=== PATIENT | female | born 1980 | race Two or more races ===

== ENCOUNTER 2021-01-01 01:18 | Emergency (ER) | payer BC, OTHER ==
[~2021-01-01] VITALS: Ht 167.6 cm; Wt 95.3 kg
[2021-01-01] MEDS ORDERED: LOSARTAN POTASSIUM 25 MG TAB PO ONE (01:45)
[2021-01-01 02:31] LABS: Calcium 8.7 mg/dL (8.5-10.1); Chloride 106 mmol/L (98-107); Potassium 3.3 mmol/L (3.5-5.1); Sodium 139 mmol/L (136-145)
[2021-01-01 02:35] LABS: Alanine Aminotransferase 33 U/L (13-56); Albumin 3.8 g/dL (3.4-5.0); Anion Gap 8 (5-15); Aspartate Aminotransferase 18 U/L (15-37); Blood Urea Nitrogen 10 mg/dL (7-18); Carbon Dioxide 25 mmol/L (21-32); GFR African American 80 mL/min; GFR Non-African American 66 mL/min; Glucose 116 mg/dL (74-106)
[2021-01-01 02:40] LABS: Alkaline Phosphatase 85 U/L (45-117); Bilirubin, Total 0.5 mg/dL (0.2-1.0); Total Protein 7.5 g/dL (6.4-8.2)
[2021-01-01] MEDS ORDERED: SODIUM CHLORIDE 0.9% 1,000 ML IV ONE (04:00)
[2021-01-01] MEDS ORDERED: FAMOTIDINE (10MG/ML) 2ML VL IV ONE (04:00)
[2021-01-01] MEDS ORDERED: ONDANSETRON HCL 4 MG/2 ML VIAL IV ONE (04:00)
[2021-01-01 07:23] LABS: Basophils # (auto) 0 10 ^3/uL (0-0.2); Basophils % (auto) 0.3 % (0.0-2.0); Eosinophils # (auto) 0.2 10 ^3/uL (0-0.8); Eosinophils % (auto) 3.2 % (0.0-7.0); Hematocrit 41.9 % (36.0-46.0); Hemoglobin 13.6 g/dL (12.2-16.2); Lymphocytes % (auto) 25.9 % (10.0-50.0); Mean Corpuscular Hemoglobin 24.4 pg (28.0-32.0); Mean Corpuscular Hgb Conc. 32.5 g/dL (32.0-36.0); Mean Corpuscular Volume 75.1 fL (80.0-100.0); Monocytes # (auto) 0.4 10 ^3/uL (0-1.3); Monocytes % (auto) 5.1 % (0.0-12.0); Neutrophils % (auto) 65.5 % (37.0-80.0); Platelet Count (auto) 234 10^3/uL (140-450); Red Blood Cells 5.59 10^6/uL (4.0-5.20); Red Cell Distribution Width 17.3 % (11.8-14.3); White Blood Cell 7.7 10^3/uL (4.4-10.8)
[2021-01-01 07:43] LABS: Albumin 3.2 g/dL (3.4-5.0); Calcium 7.9 mg/dL (8.5-10.1); Magnesium 2.2 mg/dL (1.6-2.6); Potassium 3.4 mmol/L (3.5-5.1)
[2021-01-01 07:48] LABS: BUN/Creatinine Ratio 12.5; Bilirubin, Total 0.5 mg/dL (0.2-1.0); Total Protein 6.4 g/dL (6.4-8.2)
[2021-01-01 07:55] LABS: Urine Bacteria FEW /hpf (None Seen); Urine Blood Negative /uL (Negative); Urine Hyaline Cast FEW /lpf (0 - 2); Urine Mucus MODERATE (None Seen); Urine Specific Gravity 1.025 (1.001-1.035); Urine WBC 16 /hpf (0 - 5)
[2021-01-01] MEDS ORDERED: IOHEXOL 300 MG/ML 100ML BOTTLE IJ ONE (09:25)
[2021-01-01] MEDS ORDERED: ACETAMINOPHEN 325 MG TAB PO ONE (11:00)
[2021-01-01] MEDS ORDERED: LABETALOL HCL 5 MG/ML 4ML SYRINGE IV ONE (11:00)
[2021-01-01] MEDS ORDERED: POTASSIUM EFFERVESENT TAB 25 MEQ PO ONE (11:30)
[2021-01-01] MEDS ORDERED: cloNIDine HCL 0.1 MG TAB PO ONE (12:15)
[2021-01-01] MEDS ORDERED: cloNIDine HCL 0.1 MG TAB ONE (12:26)
[2021-01-01 13:22] VITALS: BP 150/95
== END 2021-01-01 13:36 | disposition home or self-care (01) ==
LOC: ER 01:21
DX: R10.13 Epigastric pain (principal); R11.2 Nausea with vomiting, unspecified; R19.7 Diarrhea, unspecified; I10 Essential (primary) hypertension
CPT/HCPCS: 36415; 74177; 80053; 81001; 83605; 83735; 84484; 85025; 93005; 96361; 96374; 96375; 99285; J2405; J3490; J7030; Q9967

== ENCOUNTER 2021-01-09 14:36 | Emergency (ER) | payer BC ==
[~2021-01-09] VITALS: Ht 167.6 cm; Wt 99.8 kg
[2021-01-09] MEDS ORDERED: cloNIDine HCL 0.1 MG TAB PO ONE (15:15)
[2021-01-09 15:44] LABS: Basophils # (auto) 0.1 10 ^3/uL (0-0.2); Basophils % (auto) 1.4 % (0.0-2.0); Eosinophils # (auto) 0.6 10 ^3/uL (0-0.8); Eosinophils % (auto) 7.4 % (0.0-7.0); Hematocrit 42.4 % (36.0-46.0); Hemoglobin 13.9 g/dL (12.2-16.2); Lymphocytes # (auto) 2.1 10 ^3/uL (0.4-5.4); Lymphocytes % (auto) 25.5 % (10.0-50.0); Mean Corpuscular Hgb Conc. 32.9 g/dL (32.0-36.0); Mean Corpuscular Volume 75.9 fL (80.0-100.0); Monocytes # (auto) 0.4 10 ^3/uL (0-1.3); Neutrophils # (auto) 4.9 10 ^3/uL (1.6-8.6); Neutrophils % (auto) 60.7 % (37.0-80.0); Nucleated Red Blood Cells % 0.1 %; Platelet Count (auto) 230 10^3/uL (140-450); Red Blood Cells 5.58 10^6/uL (4.0-5.20); Red Cell Distribution Width 17.6 % (11.8-14.3); White Blood Cell 8.1 10^3/uL (4.4-10.8)
[2021-01-09 15:59] LABS: Chloride 108 mmol/L (98-107); Potassium 3.9 mmol/L (3.5-5.1); Sodium 141 mmol/L (136-145)
[2021-01-09 16:08] LABS: Alanine Aminotransferase 26 U/L (13-56); Albumin 3.5 g/dL (3.4-5.0); Alkaline Phosphatase 86 U/L (45-117); Anion Gap 5 (5-15); Aspartate Aminotransferase 16 U/L (15-37); BUN/Creatinine Ratio 10.2; Bilirubin, Total 0.2 mg/dL (0.2-1.0); Blood Urea Nitrogen 9 mg/dL (7-18); Calcium 8.5 mg/dL (8.5-10.1); Carbon Dioxide 28 mmol/L (21-32); GFR African American 92 mL/min; GFR Non-African American 76 mL/min; Glucose 90 mg/dL (74-106)
[2021-01-09 16:37] VITALS: BP 135/88
[2021-01-09 16:58] LABS: Urine Amorphous Crystal FEW /hpf (None Seen); Urine Bacteria NONE SEEN /hpf (None Seen); Urine Blood Negative /uL (Negative); Urine Mucus FEW (None Seen); Urine Specific Gravity 1.021 (1.001-1.035); Urine WBC 6 /hpf (0 - 5)
== END 2021-01-09 17:48 | disposition home or self-care (01) ==
LOC: ER 14:36
DX: I16.0 Hypertensive urgency (principal); I10 Essential (primary) hypertension
CPT/HCPCS: 36415; 80053; 81001; 84484; 85025; 93005

== ENCOUNTER 2021-08-23 07:19 | Emergency (ER) | payer BC ==
[~2021-08-23] VITALS: Ht 167.6 cm; Wt 95.3 kg
[2021-08-23] MEDS ORDERED: cloNIDine HCL 0.1 MG TAB PO ONE (07:30)
[2021-08-23] MEDS ORDERED: ONDANSETRON ODT 4 MG TAB PO ONE (07:30)
[2021-08-23] MEDS ORDERED: SUMAtriptan SUCCINATE 6 MG/0.5 ML VL SC ONE (08:15)
[2021-08-23 08:28] LABS: Urine Bacteria MANY /hpf (None Seen); Urine Blood Negative /uL (Negative); Urine Hyaline Cast FEW /lpf (0 - 2); Urine Mucus FEW (None Seen); Urine Specific Gravity 1.023 (1.001-1.035); Urine WBC 33 /hpf (0 - 5)
[2021-08-23 09:17] VITALS: BP 184/105
== END 2021-08-23 09:27 | disposition home or self-care (01) ==
LOC: ER 07:19
DX: G43.909 Migraine, unspecified, not intractable, without status migrainosus (principal); N39.0 Urinary tract infection, site not specified; I10 Essential (primary) hypertension
CPT/HCPCS: 81001; 81025; 96372; 99283; J3030; Q0162

== ENCOUNTER 2021-11-27 10:48 | Inpatient (IN) | payer BC ==
[~2021-11-27] VITALS: Ht 167.6 cm; Wt 99.3 kg
[2021-11-27] MEDS ORDERED: KETOROLAC TROMETH 60MG/2ML VIAL IM ONE (13:30)
[2021-11-27] MEDS ORDERED: IBU600T PO (13:38)
[2021-11-27] MEDS ORDERED: ONDANSETRON HCL 4 MG/2 ML VIAL IV ONE (15:45)
[2021-11-27] MEDS ORDERED: hydrALAZINE HCL 20 MG/ML VL IV ONE (15:45)
[2021-11-27] MEDS ORDERED: HYDROmorphone HCL 2 MG/ML VL IV ONE (15:45)
[2021-11-27] MEDS ORDERED: cefTRIAXone 1GM/50ML D5W 50 ML IV ONE (15:45)
[2021-11-27 16:34] LABS: Basophils # (auto) 0 10 ^3/uL (0-0.2); Eosinophils # (auto) 0.3 10 ^3/uL (0-0.8); Hemoglobin 14.3 g/dL (12.2-16.2); Mean Corpuscular Volume 74.3 fL (80.0-100.0); Neutrophils # (auto) 5.2 10 ^3/uL (1.6-8.6); White Blood Cell 7.8 10^3/uL (4.4-10.8)
[2021-11-27 16:36] LABS: Basophils % (auto) 0.5 % (0.0-2.0); Eosinophils % (auto) 3.9 % (0.0-7.0); Hematocrit 43.6 % (36.0-46.0); Lymphocytes # (auto) 1.9 10 ^3/uL (0.4-5.4); Lymphocytes % (auto) 24.6 % (10.0-50.0); Mean Corpuscular Hemoglobin 24.3 pg (28.0-32.0); Mean Corpuscular Hgb Conc. 32.7 g/dL (32.0-36.0); Monocytes # (auto) 0.4 10 ^3/uL (0-1.3); Monocytes % (auto) 4.6 % (0.0-12.0); Neutrophils % (auto) 66.4 % (37.0-80.0); Nucleated Red Blood Cells % 0.1 %; Red Blood Cells 5.87 10^6/uL (4.0-5.20); Red Cell Distribution Width 17.1 % (11.8-14.3)
[2021-11-27 17:11] LABS: Albumin 3.6 g/dL (3.4-5.0); Calcium 8.7 mg/dL (8.5-10.1); Potassium 3.4 mmol/L (3.5-5.1)
[2021-11-27 17:14] LABS: BUN/Creatinine Ratio 12.4; Bilirubin, Total 0.4 mg/dL (0.2-1.0); Total Protein 7.4 g/dL (6.4-8.2)
[2021-11-27] MEDS ORDERED: LABETALOL HCL 5 MG/ML 4ML SYRINGE IV ONE (17:45)
[2021-11-27] MEDS ORDERED: cloNIDine HCL 0.1 MG TAB PO PRN (20:45)
[2021-11-27] MEDS ORDERED: NITROGLYCERIN 0.4 MG SL TAB SL PRN (20:45)
[2021-11-27] MEDS ORDERED: ONDANSETRON HCL 4 MG/2 ML VIAL IV PRN (20:45)
[2021-11-27] MEDS ORDERED: MORPHINE SULFATE INJECTION 2 MG/ML SYRG IV PRN (20:45)
[2021-11-27] MEDS ORDERED: ACETAMINOPHEN 325 MG TAB PO PRN (20:45)
[2021-11-27 21:38] LABS: Urine Amorphous Crystal FEW /hpf (None Seen); Urine Bacteria FEW /hpf (None Seen); Urine Blood Negative /uL (Negative); Urine Mucus FEW (None Seen); Urine Specific Gravity 1.027 (1.001-1.035); Urine WBC 4 /hpf (0 - 5)
[2021-11-27] MEDS ORDERED: TEMAZEPAM 15 MG CAP PO PRN (22:00)
[2021-11-27] MEDS ORDERED: POTASSIUM CHL 20 Meq TABLET PO ONE (22:45)
[2021-11-27] MEDS ORDERED: SUMAtriptan SUCCINATE 25 MG TAB PO PRN (23:00)
[2021-11-28] MEDS ORDERED: SUMA50TA16 PO (00:16)
[2021-11-28] MEDS ORDERED: LOSA25TA38 PO (00:16)
[2021-11-28 05:00] VITALS: BP 122/85
[2021-11-28 06:06] LABS: Basophils # (auto) 0 10 ^3/uL (0-0.2); Basophils % (auto) 0.5 % (0.0-2.0); Eosinophils # (auto) 0.3 10 ^3/uL (0-0.8); Eosinophils % (auto) 3.6 % (0.0-7.0); Hematocrit 38.9 % (36.0-46.0); Lymphocytes # (auto) 2.6 10 ^3/uL (0.4-5.4); Lymphocytes % (auto) 31.6 % (10.0-50.0); Mean Corpuscular Hemoglobin 24.8 pg (28.0-32.0); Mean Corpuscular Hgb Conc. 33.3 g/dL (32.0-36.0); Mean Corpuscular Volume 74.2 fL (80.0-100.0); Monocytes # (auto) 0.5 10 ^3/uL (0-1.3); Monocytes % (auto) 6.4 % (0.0-12.0); Neutrophils # (auto) 4.7 10 ^3/uL (1.6-8.6); Neutrophils % (auto) 57.9 % (37.0-80.0); Nucleated Red Blood Cells % 0.1 %; Red Blood Cells 5.24 10^6/uL (4.0-5.20); Red Cell Distribution Width 17.1 % (11.8-14.3); White Blood Cell 8.1 10^3/uL (4.4-10.8)
[2021-11-28 06:16] LABS: BUN/Creatinine Ratio 15.4; Calcium 8.3 mg/dL (8.5-10.1); Potassium 3.3 mmol/L (3.5-5.1)
[2021-11-28 09:00] VITALS: BP 126/90
[2021-11-28] MEDS ORDERED: LOSARTAN POTASSIUM 25 MG TAB PO SCH (10:00)
[2021-11-28] MEDS ORDERED: LISINOPRIL 10 MG TAB PO SCH (10:00)
[2021-11-28] MEDS ORDERED: PANTOPRAZOLE 40 MG TAB PO SCH (10:00)
[2021-11-28] MEDS ORDERED: METO25TA36 PO (12:09)
[2021-11-28] MEDS ORDERED: LOSA-69 PO (12:09)
[2021-11-28] MEDS ORDERED: RIME75TA PO (12:09)
[2021-11-28] MEDS ORDERED: POTASSIUM CHL 20 Meq TABLET PO ONE (12:15)
[2021-11-28 13:00] VITALS: BP 125/88
[2021-11-28 15:19] VITALS: BP 126/90
== END 2021-11-28 17:16 | disposition home or self-care (01) | DRG 103 ==
LOC: ER 10:48 → TELE 20:44 → TELE-WESTW 22:33
PROVIDERS: ADMIT Nurse Practitioner; ATTEND Internal Medicine
DX: G43.909 Migraine, unspecified, not intractable, without status migrainosus (principal); I16.0 Hypertensive urgency; E87.6 Hypokalemia; E66.01 Morbid (severe) obesity due to excess calories; I10 Essential (primary) hypertension; Z20.822 Contact with and (suspected) exposure to COVID-19; Z68.35 Body mass index [BMI] 35.0-35.9, adult
CPT/HCPCS: 36415; 70450; 80048; 80053; 81001; 84443; 84484; 85025; 96365; 96372; 96375; 96376; 99291; G0378; J0696; J1885; J2405; J3490

== ENCOUNTER 2022-04-30 08:50 | Emergency (ER) | payer BC ==
[~2022-04-30] VITALS: Ht 167.6 cm; Wt 97.8 kg
[~2022-04-30 08:50] MED LIST: LOSA-69 PO; LOSA25TA38 PO; METO25TA36 PO; RIME75TA PO; SUMA50TA16 PO
[2022-04-30 09:07] VITALS: BP 167/114
[2022-04-30 09:36] LABS: Basophils # (auto) 0.1 10 ^3/uL (0-0.2); Monocytes # (auto) 0.4 10 ^3/uL (0-1.3); Neutrophils % (auto) 59.4 % (37.0-80.0); Nucleated Red Blood Cells % 0.1 %
[2022-04-30 09:38] LABS: Basophils % (auto) 1.2 % (0.0-2.0); Eosinophils # (auto) 0.5 10 ^3/uL (0-0.8); Eosinophils % (auto) 5.7 % (0.0-7.0); Hematocrit 46.2 % (36.0-46.0); Hemoglobin 14.8 g/dL (12.2-16.2); Lymphocytes # (auto) 2.5 10 ^3/uL (0.4-5.4); Lymphocytes % (auto) 29.5 % (10.0-50.0); Mean Corpuscular Hgb Conc. 32.1 g/dL (32.0-36.0); Mean Corpuscular Volume 74.8 fL (80.0-100.0); Monocytes % (auto) 4.2 % (0.0-12.0); Red Blood Cells 6.18 10^6/uL (4.0-5.20); White Blood Cell 8.4 10^3/uL (4.4-10.8)
[2022-04-30 09:57] LABS: Albumin 3.8 g/dL (3.4-5.0); Calcium 8.9 mg/dL (8.5-10.1); Potassium 3.1 mmol/L (3.5-5.1)
[2022-04-30 10:00] LABS: BUN/Creatinine Ratio 11.8; Bilirubin, Total 0.4 mg/dL (0.2-1.0); Total Protein 7.6 g/dL (6.4-8.2)
[2022-04-30 11:11] LABS: Urine Bacteria FEW /hpf (None Seen); Urine Blood Negative /uL (Negative); Urine Mucus FEW (None Seen); Urine Specific Gravity 1.024 (1.001-1.035); Urine WBC 8 /hpf (0 - 5)
[2022-04-30] MEDS ORDERED: IBU600T PO (11:57)
[2022-04-30] MEDS ORDERED: NITR-87 PO (11:57)
== END 2022-04-30 20:15 | disposition home or self-care (01) ==
LOC: ER 08:50
DX: G43.909 Migraine, unspecified, not intractable, without status migrainosus (principal); N39.0 Urinary tract infection, site not specified; I10 Essential (primary) hypertension
CPT/HCPCS: 36415; 70450; 80053; 81001; 85025

== ENCOUNTER 2024-10-18 10:46 | Inpatient (IN) | payer BC, OTHER ==
[~2024-10-18] VITALS: Ht 167.6 cm; Wt 91.6 kg
[~2024-10-18 10:46] MED LIST changes: +IBU600T PO; +LOSA-533 PO; +LOSA-534 PO; -LOSA-69 PO; -LOSA25TA38 PO; +NITR-87 PO
--- NOTE | 2024-10-18 11:16 | ECG ---
[facility] Test Date: 2024-10-18 Test Time: 11:14:57 Pat Name: LUCHO HAMILTON Department: ER Room: [address] [place] [address] Gender: F Budget Analyst: KAIDEN : 1980 Requested By: NESTOR KIM Order Number: [id number] Reading MD: Kavon Fisher Measurements Intervals [place] Rate: 92 P: 56 KS: 157 QRS: 50 QRSD: 96 T: 29 QT: 363 QTc: 450 Interpretive Statements Sinus rhythm Electronically Signed On 10-23-2024 17:12:28 PST by Kavon Fisher Please click the below link to view image of tracing.
[2024-10-18] MEDS: NITROGLYCERIN 0.4 MG SL TAB SL ONE (11:26)
--- NOTE | 2024-10-18 11:26 | ED.PDOC ---
HPI Comments HPI: Poor Historian. 44 y.o female presents to the ED for a chief complaint of a generalized headache associated with nausea and vomiting that started 2 days ago. Patient presents to triage with blood pressure reading 203/134 and a repeat of 169/130. Patient does have history of HTN and is compliant with medication. Patient denies any recent head trauma, fall. Denies any other acute symptoms. Denies abdominal pain. Denies any other neurological complaints. Vitals BP: 169/130 HR: 95 Temp: 98.1 F RR: 16 SPO2: 97% RA Past medical history: HTN and migraines Past surgical history: and breast implants Allergies: Denies REVIEW OF SYSTEMS: CONSTITUTIONAL: Denies acute: fever, diaphoresis, chills, generalized weakness. HEAD: Denies acute: photophobia Eyes: Denies acute: Double vision, vision loss, eye pain, eye discharge. EARS: Denies acute: tinnitus, hearing loss, ear discharge, ear pain, THROAT: Denies acute: sore throat, swelling, difficulty swallowing , pain with swallowing, change in voice. NECK: Denies acute: neck pain, neck swelling, stiff neck. HEART: Denies acute : chest pain, palpitations, LUNGS: Denies acute: SOB, wheezing, cough, hemoptysis ABDOMEN: Denies acute: abdominal pain, diarrhea, melena , hematemesis, hematochezia SKIN: Denies acute: rash, redness, lesions, itchiness. EXTREMITIES: Denies acute: calf pain, numbness, tingling, weakness, denies pain in extremity. Denies acute: Low back pain. Neuro: Denies acute: focal neurological deficit, motor or sensory focal neurological deficit, tremors, seizure like activity, confusion, dizziness, change in mental status, loss of bowel or bladder function, cauda equina like symptoms. : Denies acute: dysuria, hematuria, flank pain, increase in urinary frequency. PSYCH: Denies acute: hallucination, suicidal ideation, homicidal ideation. FEMALE: Denies acute: abnormal vaginal bleeding, foul odor, unusual discharge. PHYSICAL EXAM: General: Clpt-[id number] acute distress, awake and alert. Head: normocephalic, atraumatic. Neck: supple, trachea is midline, no swelling. Throat: Normal phonation. Eyes:, no erythema, no purulent discharge, no proptosis, no icterus. Heart: regular rate, regular rhythm, no significant murmur appreciated. Lungs: no apparent respiratory distress, Able to speak in full sentences. No wheezing, no rhonchi, no crackles. No stridors Clear to auscultation bilaterally. Abdomen: non tender to palpation, non distended, soft, no guarding, no rebound, + bowel sounds. Neuro: Awake, Alert, oriented to name, self, situation, follows commands GCS=15. Speech is normal. Skin: no petechia, no purpura, no cyanosis, non-pale, not jaundice. Lower extremities: --no - Pitting edema no deformity, no focal swelling, no calf TTP. Makes eye contact. moves all four extremities. Face: no apparent facial droop. Ambulating in the ED independently. PERRLA, EOM-I CN 2-12 are grossly intact, No nystagmus. ED COURSE: Chief Complaint: High Blood Pressure Time Seen by MD: 11:08 Primary Care Provider: roberto Reviewed Notes: Nurses Notes, Allergies Allergies: Coded Allergies: NO KNOWN ALLERGIES (Unverified , 01/09/21) Home Meds Active Scripts Ibuprofen Micronized (MOTRIN TABLET) 600 Mg Tb, 600 MG PO TID PRN for 7 Days, #21 TAB *Black box warning-NSAIDS can increase risk of CT & hypertension, GI irritation, ulceration, bleed, perferation. Do not use post cardiac surgery. Use short duration/lowest effective dose. Prov:DRU MAKI MD 04/30/22 Nitrofurantoin Monohydrate Mac (Macrobid) 100 Mg Cap, 100 MG PO BID for 7 Days, #21 CAP Prov:DRU MAKI MD 04/30/22 Metoprolol Succinate (Toprol Xl) 25 Mg Tab, 1 TAB PO DAILY, #30 TAB 0 Refills Prov:JOSE STEVENS MD 11/28/21 Rimegepant Sulfate (Nurtec) 75 Mg Tab, 75 MG PO PRN, #3 TAB 0 Refills 75 mg PO x 1 as needed for prophylaxis migraine headache (two days prior menstrual period) Prov:JOSE STEVENS MD 11/28/21 Losartan Potassium (Losartan Potassium) 50 Mg Tab, 1 TAB PO DAILY, #30 TAB 0 Refills Prov:JOSE STEVENS MD 11/28/21 Reported Medications Sumatriptan Succinate (Sumatriptan Succinate) 50 Mg Tab, 50 MG PO DAILYP PRN for FOR HEADACHE, MG 11/28/21 Losartan Potassium (Losartan Potassium) 25 Mg Tab, PO DAILY for 30 Days, MG 11/28/21 Information Source: Patient Mode of Arrival: Ambulatory Past Medical History PAST MEDICAL HISTORY: HTN Past Medical History (Other): migraines 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 Was a procedure done?: No CP Differential Dx Differential Diagnosis: N/A Differential Diagnosis: CHF, HTN Essential, HTN Accelerated, HTN Encephalopathy, Medical NonCompliance, Induced, Other (DDX include renal disease, thyroid disease, electrolyte abnormality, increased salt intake, medications non-compliance, undiagnosed HTN, Hypertensive crisis, hypertensive urgency., drug toxicity.) X-Ray, Labs, Meds, VS Vital Signs Date Time Temp Pulse Resp B/P (MAP) Pulse Ox O2 Delivery O2 Flow Rate FiO2 10/18/24 18:53 98.0 96 16 204/132 (156) 98 98.0 10/18/24 16:04 85 16 189/129 (149) 98 10/18/24 14:31 82 176/126 10/18/24 14:17 82 176/126 (143) 10/18/24 12:26 168/115 10/18/24 11:29 Room Air* 0 21 10/18/24 11:28 98.0 96 17 181/143 (156) 99 98.0 10/18/24 11:26 181/143 10/18/24 11:15 98.1 95 16 169/130 (143) 97 10/18/24 11:14 92 Lab Test 10/18/24 12:13 10/18/24 11:18 10/18/24 11:11 Range/Units Troponin I High Sensitivity < 3 L < 3 L </=34 ng/L Triglycerides Level 103 < 150 mg/dL Cholesterol Level 155 < 200 mg/dL LDL Cholesterol 103 H < 100 mg/dL HDL Cholesterol 48 40-59 mg/dL Thyroid Stimulating Hormone (TSH) Pending White Blood Count 7.8 4.4-10.8 10^3/uL Red Blood Count 6.41 H 4.0-5.20 10^6/uL Hemoglobin 13.4 12.2-16.2 g/dL Hematocrit 43.7 36.0-46.0 % Mean Corpuscular Volume 68.2 L 80.0-100.0 fL Mean Corpuscular Hemoglobin 20.9 L 28.0-32.0 pg Mean Corpuscular Hemoglobin Concent 30.7 L 32.0-36.0 g/dL Red Cell Distribution Width 19.1 H 11.8-14.3 % Platelet Count 292 140-450 10^3/uL Mean Platelet Volume 8.9 6.9-10.8 fL Neutrophils (%) (Auto) 59.6 37.0-80.0 % Lymphocytes (%) (Auto) 26.7 10.0-50.0 % Monocytes (%) (Auto) 5.2 0.0-12.0 % Eosinophils (%) (Auto) 7.5 H 0.0-7.0 % Basophils (%) (Auto) 1.0 0.0-2.0 % Neutrophils # (Auto) 4.6 1.6-8.6 10 ^3/uL Lymphocytes # (Auto) 2.1 0.4-5.4 10 ^3/uL Monocytes # (Auto) 0.4 0-1.3 10 ^3/uL Eosinophils # (Auto) 0.6 0-0.8 10 ^3/uL Basophils # (Auto) 0.1 0-0.2 10 ^3/uL Nucleated Red Blood Cells 0.0 % Sodium Level 141 136-145 mmol/L Potassium Level 4.0 3.5-5.1 mmol/L Chloride Level 107 98-107 mmol/L Carbon Dioxide Level 26 20-31 mmol/L Anion Gap 8 5-15 Blood Urea Nitrogen 9 9-23 mg/dL Creatinine 0.91 0.550-1.02 mg/dL Glomerular Filtration Rate Calc 81 >90 mL/min BUN/Creatinine Ratio 9.9 L 10.0-20.0 Serum Glucose 100 74-106 mg/dL Calcium Level 9.4 8.7-10.4 mg/dL Total Bilirubin 0.4 0.2-1.0 mg/dL Aspartate Amino Transferase (AST) < 8 L 13-40 U/L Alanine Aminotransferase (ALT) 18 7-40 U/L Alkaline Phosphatase 91 46-116 U/L Total Protein 7.1 5.7-8.2 g/dL Albumin 4.8 3.2-4.8 g/dL Urine Color Yellow Yellow Urine Clarity Clear Clear Urine pH 6.0 5.0-9.0 Urine Specific [place] 1.019 1.001-1.035 Urine Protein 1+ H Negative Urine Ketones Negative Negative Urine Blood Negative Negative /uL Urine Nitrite Negative Negative Urine Bilirubin Negative Negative Urine Urobilinogen Normal Negative mg/dL Urine Leukocyte Esterase Negative Negative /uL Urine RBC <1 0 - 4 /hpf Urine Microscopic WBC 4 0-5 /HPF Urine Squamous Epithelial Cells Few <5 /hpf Urine Bacteria Few H None Seen /hpf Urine Hyaline Casts Few 0 - 2 /lpf Urine Mucus Moderate None Seen Urine Glucose Trace Normal mg/dL Current Medications Medications (Trade) Dose Ordered Sig/Rosanna Route Start Time Stop Time Status Last Admin Nitroglycerin (Ntrostat Sublingual) 0.4 mg ONCE ONCE SL 10/18/24 11:15 10/18/24 11:16 DC 10/18/24 11:26 Labetalol HCl (Labetalol HCl) 5 mg ONCE ONCE IV 10/18/24 14:30 10/18/24 14:31 DC 10/18/24 14:31 Ondansetron HCl (Zofran) 8 mg ONCE ONCE IV 10/18/24 14:45 10/18/24 14:46 DC 10/18/24 14:54 Labetalol HCl (Labetalol HCl) 5 mg ONCE ONCE IV 10/18/24 18:30 10/18/24 19:02 DC 10/18/24 19:35 [place] [id number] Ph: [phone] DIAGNOSTIC IMAGING Diagnostic Imaging Report : [id number] Signed PATIENT: LUCHO HAMILTON ACCT: [id number] UNIT: [id number] : 1980 LOC: ER ROOM / BED: / AGE / SEX: 44 / F ADM STATUS: REG ER SERVICE 1111 ORDERING PHYSICIAN: NESTOR KIM DO PROCEDURE(s): HWOCT - HEAD WITHOUT CONTRAST REASON: HTN ORDER NUMBER(s): [id number], ACCESSION NUMBER(s): [id number] EXAM: CT HEAD WITHOUT CONTRAST HISTORY: HTN COMPARISON: HEAD WITHOUT CONTRAST on DOS: 04/30/22, HEAD WITHOUT CONTRAST on DOS: 11/27/21 TECHNIQUE: Axial images of the head were obtained and reformatted in coronal and sagittal planes. All CT scans at this medical facility are performed using dose modulation techniques as appropriate to a performed exam including the following: Automated exposure control was utilized; adjustment of the MA and/or KV according to patient size; and use of iterative reconstruction technique. CT Dose: CTDI volume is 57 mGy. Dose-length product is 1009 mGy*cm FINDINGS: There is no evidence of acute intracranial hemorrhage, mass, mass effect midline shift. There is no hydrocephalus or extra-axial fluid collection. Ivan-white matter differentiation is maintained. The visualized paranasal sinuses and mastoid air cells are clear. The calvarium is intact. IMPRESSION: 1. No acute intracranial process. HS:Y ATED BY: HENRY SALDANA MD DICTATED DATE/TIME: 10/18/24 1151 SIGNED BY: HENRY SALDANA MD SIGNED DATE/TIME: 10/18/24 1151 CC: [place] [id number] Ph: [phone] DIAGNOSTIC IMAGING Diagnostic Imaging Report : [id number] Signed PATIENT: LUCHO HAMILTON ACCT: [id number] UNIT: [id number] : 1980 LOC: ER ROOM / BED: / AGE / SEX: 44 / F ADM STATUS: REG ER SERVICE 1111 ORDERING PHYSICIAN: NESTOR KIM DO PROCEDURE(s): CXRP - CHEST PORTABLE REASON: HTN ORDER NUMBER(s): [id number], ACCESSION NUMBER(s): [id number] EXAM: XY CHEST PORTABLE Indication: HTN Technique: Single frontal view of the chest was obtained Comparison: None FINDINGS: Lines and Tubes: None Lungs: No focal consolidation. Pleura: No effusion. No pneumothorax. Cardiomediastinal contours: Unremarkable Bones: No acute osseous abnormality. IMPRESSION: No acute cardiopulmonary disease. ATED BY: CHIARA JANG MD DICTATED DATE/TIME: 10/18/24 1201 SIGNED BY: CHIARA JANG MD SIGNED DATE/TIME: 10/18/24 1201 CC: Time of 1ST Reevaluation: 11:23 Reevaluation 1ST: Unchanged Patient Education/Counseling: Diagnosis, Treatment Family Education/Counseling: No Family Present Comments Patient presented with the above HPI.---hypotension/neuro---workup was initiated. patient was found with the above mentioned diagnosis. the following medications were ordered: please refer to order lists of meds and tests obtained by myself Dr. Kim. Patient ED course and VS have been stabilized. Patient has been reassessed in the ED and remained in a stable condition. Pertinent incidental findings were discussed with the patient and/or family. Patient/family voices understanding and is agreeable with plan. Patient has been observed in the ED adequate length of time to insure improvement/stability. Escalation of care considered: Consideration of escalation to observation or admission Patient was ADMITTED to the medicine team for further evaluation and treatment of their presentation. All the reports of any imaging studies that were ordered by myself were reviewed by myself. Departure 1 Departure Time of Disposition: 19:00 Impression: Primary Impression: Hypertensive urgency Disposition: ADMITTED INPATIENT Admit to: [facility] Condition: Guarded Discharged With: Self Critical Care Note Critical Care Time?: Yes (45 min-critical care time only) I personally scribed for NESTOR KIM DO ([email or web address]) on 10/18/24 at 11:26. Electronically submitted by Deepthi Boykin ([email or web address]). I personally scribed for NESTOR KIM DO ([email or web address]) on 10/18/24 at 13:58. Electronically submitted by Deepthi Boykin ([email or web address]). NESTOR KIM DO Oct 18, 2024 11:26
[2024-10-18 11:39] LABS: Basophils # (auto) 0.1 10 ^3/uL (0-0.2); Monocytes # (auto) 0.4 10 ^3/uL (0-1.3); Monocytes % (auto) 5.2 % (0.0-12.0); Platelet Count (auto) 292 10^3/uL (140-450)
[2024-10-18 11:41] LABS: Eosinophils # (auto) 0.6 10 ^3/uL (0-0.8); Eosinophils % (auto) 7.5 % (0.0-7.0); Hematocrit 43.7 % (36.0-46.0); Hemoglobin 13.4 g/dL (12.2-16.2); Lymphocytes # (auto) 2.1 10 ^3/uL (0.4-5.4); Lymphocytes % (auto) 26.7 % (10.0-50.0); Mean Corpuscular Hemoglobin 20.9 pg (28.0-32.0); Mean Corpuscular Hgb Conc. 30.7 g/dL (32.0-36.0); Mean Corpuscular Volume 68.2 fL (80.0-100.0); Neutrophils # (auto) 4.6 10 ^3/uL (1.6-8.6); Neutrophils % (auto) 59.6 % (37.0-80.0); Red Blood Cells 6.41 10^6/uL (4.0-5.20); Red Cell Distribution Width 19.1 % (11.8-14.3); White Blood Cell 7.8 10^3/uL (4.4-10.8)
--- NOTE | 2024-10-18 11:53 | DVH ---
EXAM: CT HEAD WITHOUT CONTRAST HISTORY: HTN COMPARISON: HEAD WITHOUT CONTRAST on DOS: 04/30/22, HEAD WITHOUT CONTRAST on DOS: 11/27/21 TECHNIQUE: Axial images of the head were obtained and reformatted in coronal and sagittal planes. All CT scans at this medical facility are performed using dose modulation techniques as appropriate t o a performed exam including the following: Automated exposure control was utilized; adjustment of th e MA and/or KV according to patient size; and use of iterative reconstruction technique. CT Dose: CTDI volume is 57 mGy. Dose-length product is 1009 mGy*cm FINDINGS: There is no evidence of acute intracranial hemorrhage, mass, mass effect midline shift. There is no h ydrocephalus or extra-axial fluid collection. Ivan-white matter differentiation is maintained. The visualized paranasal sinuses and mastoid air cells are clear. The calvarium is intact. IMPRESSION: 1. No acute intracranial process. HS:Y
[2024-10-18 12:01] LABS: Alanine Aminotransferase 18 U/L (7-40); Albumin 4.8 g/dL (3.2-4.8); Alkaline Phosphatase 91 U/L (46-116); Anion Gap 8 (5-15); BUN/Creatinine Ratio 9.9 (10.0-20.0); Blood Urea Nitrogen 9 mg/dL (9-23); Calcium 9.4 mg/dL (8.7-10.4); Carbon Dioxide 26 mmol/L (20-31); Glucose 100 mg/dL (74-106); Sodium 141 mmol/L (136-145); Total Protein 7.1 g/dL (5.7-8.2)
--- NOTE | 2024-10-18 12:01 | DVH ---
EXAM: XY CHEST PORTABLE Indication: HTN Technique: Single frontal view of the chest was obtained Comparison: None FINDINGS: Lines and Tubes: None Lungs: No focal consolidation. Pleura: No effusion. No pneumothorax. Cardiomediastinal contours: Unremarkable Bones: No acute osseous abnormality. IMPRESSION: No acute cardiopulmonary disease.
[2024-10-18 12:02] LABS: Bilirubin, Total 0.4 mg/dL (0.2-1.0)
[2024-10-18 12:05] LABS: Aspartate Aminotransferase < 8 U/L (13-40); Chloride 107 mmol/L (98-107)
[2024-10-18 12:39] LABS: Urine Bacteria FEW /hpf (None Seen); Urine Blood Negative /uL (Negative); Urine Clarity Clear (Clear); Urine Color Yellow (Yellow); Urine Hyaline Cast FEW /lpf (0 - 2); Urine Mucus MODERATE (None Seen); Urine Protein, UAD 1+ (Negative); Urine Specific Gravity 1.019 (1.001-1.035); Urine Squamous Epithelial Cell FEW /hpf (<5); Urine Urobilinogen Normal (Negative); Urine WBC 4 /HPF (0-5)
[2024-10-18] MEDS: LABETALOL HCL 20 MG/4 ML VL IV ONE ×2 (14:31→19:35)
[2024-10-18] MEDS: ONDANSETRON HCL 4 MG/2 ML VIAL IV ONE (14:54)
[2024-10-18] MEDS ORDERED: TEMAZEPAM 15 MG CAP PO PRN (19:15)
[2024-10-18] MEDS: ACETAMINOPHEN 325 MG TAB PO PRN (19:34)
[2024-10-18] MEDS ORDERED: HYDROcodone-ACET 5/325MG TAB PO PRN (20:15)
--- NOTE | 2024-10-18 20:18 | DVHHP2 ---
History of Present Illness Reason for Visit: Headache History of Present Illness 44-year-old female presents for evaluation of headache. Patient reports a two day history of developing a headache. She states that normally her blood pressure will run in the 160s. She reports that today she developed a headache and she initially thought that it was due to her migraines that she normally gets. When she checked her blood pressure it was reading in the 200s. She subsequently developed blurred vision and left arm tingling sensation. She also reports some episodes of nausea with vomiting. No chest pain at the moment. No other acute complaints. Past Medical History Hypertension and migraines Past Surgical History Breast implant and Family History Noncontributory Smoke: No ALCOHOL: none Drugs: None Lives: with Family Review of Systems Review of Systems Review of systems are currently negative otherwise addressed in HPI. Allergies: Coded Allergies: NO KNOWN ALLERGIES (Unverified , 01/09/21) Medications Current Medications Medications Dose Ordered Sig/Rosanna Route Start Time Stop Time Status Last Admin Dose Admin Hydralazine HCl 10 mg Q6HP PRN IV 10/18/24 19:15 Metoprolol Succinate 50 mg DAILY PO 10/19/24 10:00 Losartan Potassium 50 mg DAILY PO 10/19/24 10:00 Temazepam 15 mg QHSP PRN PO 10/18/24 19:15 Ondansetron HCl 4 mg Q4HP PRN IV 10/18/24 19:15 Acetaminophen 650 mg Q6HP PRN PO 10/18/24 19:15 10/18/24 19:34 650 MG Exam Vital Signs Vital Signs Date Time Temp Pulse Resp B/P (MAP) Pulse Ox O2 Delivery O2 Flow Rate FiO2 10/18/24 19:39 94 170/118 10/18/24 19:25 98.3 20 99 98.3 10/18/24 19:25 Room Air 10/18/24 11:29 0 21 Exam Gen: 44-year-old female in mild distress Skin: Warm, dry, normal color and texture, no rash. HEENT: Normocephalic atraumatic, mucous membranes moist and pink. Neck: Cervical and supraclavicular nodes normal without enlargement, trachea is midline, thyroid gland is normal without masses. Pulmonary: Clear to auscultation and percussion bilaterally. Cardiac: Regular rate and rhythm. No murmur Abdomen: Soft, nontender, nondistended, bowel sounds present all 4 quadrants, no guarding, no rigidity, no organomegaly. Extremities: No cyanosis, clubbing, no edema Neuro: Cranial nerves II through XII grossly intact, normal affect and speech, no focal motor deficits. Labs/Xrays ORDERING PHYSICIAN: NESTOR KIM DO PROCEDURE(s): CXRP - CHEST PORTABLE REASON: HTN ORDER NUMBER(s): [id number], ACCESSION NUMBER(s): [id number] EXAM: XY CHEST PORTABLE Indication: HTN Technique: Single frontal view of the chest was obtained Comparison: None FINDINGS: Lines and Tubes: None Lungs: No focal consolidation. Pleura: No effusion. No pneumothorax. Cardiomediastinal contours: Unremarkable Bones: No acute osseous abnormality. IMPRESSION: No acute cardiopulmonary disease. ATED BY: CHIARA JANG MD DICTATED DATE/TIME: 10/18/24 1201 ORDERING PHYSICIAN: NESTOR KIM DO PROCEDURE(s): HWOCT - HEAD WITHOUT CONTRAST REASON: HTN ORDER NUMBER(s): [id number], ACCESSION NUMBER(s): [id number] EXAM: CT HEAD WITHOUT CONTRAST HISTORY: HTN COMPARISON: HEAD WITHOUT CONTRAST on DOS: 04/30/22, HEAD WITHOUT CONTRAST on DOS: 11/27/21 TECHNIQUE: Axial images of the head were obtained and reformatted in coronal and sagittal planes. All CT scans at this medical facility are performed using dose modulation techniques as appropriate to a performed exam including the following: Automated exposure control was utilized; adjustment of the MA and/or KV according to patient size; and use of iterative reconstruction technique. CT Dose: CTDI volume is 57 mGy. Dose-length product is 1009 mGy*cm FINDINGS: There is no evidence of acute intracranial hemorrhage, mass, mass effect midline shift. There is no hydrocephalus or extra-axial fluid collection. Ivan-white matter differentiation is maintained. The visualized paranasal sinuses and mastoid air cells are clear. The calvarium is intact. IMPRESSION: 1. No acute intracranial process. HS:Y Electronically Signed by: Henry Saldana at 10/18 Labs Test 10/18/24 12:13 10/18/24 11:18 10/18/24 11:11 Range/Units Troponin I High Sensitivity < 3 L </=34 ng/L White Blood Count 7.8 4.4-10.8 10^3/uL Red Blood Count 6.41 H 4.0-5.20 10^6/uL Hemoglobin 13.4 12.2-16.2 g/dL Hematocrit 43.7 36.0-46.0 % Mean Corpuscular Volume 68.2 L 80.0-100.0 fL Mean Corpuscular Hemoglobin 20.9 L 28.0-32.0 pg Mean Corpuscular Hemoglobin Concent 30.7 L 32.0-36.0 g/dL Red Cell Distribution Width 19.1 H 11.8-14.3 % Platelet Count 292 140-450 10^3/uL Mean Platelet Volume 8.9 6.9-10.8 fL Neutrophils (%) (Auto) 59.6 37.0-80.0 % Lymphocytes (%) (Auto) 26.7 10.0-50.0 % Monocytes (%) (Auto) 5.2 0.0-12.0 % Eosinophils (%) (Auto) 7.5 H 0.0-7.0 % Basophils (%) (Auto) 1.0 0.0-2.0 % Neutrophils # (Auto) 4.6 1.6-8.6 10 ^3/uL Lymphocytes # (Auto) 2.1 0.4-5.4 10 ^3/uL Monocytes # (Auto) 0.4 0-1.3 10 ^3/uL Eosinophils # (Auto) 0.6 0-0.8 10 ^3/uL Basophils # (Auto) 0.1 0-0.2 10 ^3/uL Nucleated Red Blood Cells 0.0 % Sodium Level 141 136-145 mmol/L Potassium Level 4.0 3.5-5.1 mmol/L Chloride Level 107 98-107 mmol/L Carbon Dioxide Level 26 20-31 mmol/L Anion Gap 8 5-15 Blood Urea Nitrogen 9 9-23 mg/dL Creatinine 0.91 0.550-1.02 mg/dL Glomerular Filtration Rate Calc 81 >90 mL/min BUN/Creatinine Ratio 9.9 L 10.0-20.0 Serum Glucose 100 74-106 mg/dL Calcium Level 9.4 8.7-10.4 mg/dL Total Bilirubin 0.4 0.2-1.0 mg/dL Aspartate Amino Transferase (AST) < 8 L 13-40 U/L Alanine Aminotransferase (ALT) 18 7-40 U/L Alkaline Phosphatase 91 46-116 U/L Total Protein 7.1 5.7-8.2 g/dL Albumin 4.8 3.2-4.8 g/dL Urine Color Yellow Yellow Urine Clarity Clear Clear Urine pH 6.0 5.0-9.0 Urine Specific [place] 1.019 1.001-1.035 Urine Protein 1+ H Negative Urine Ketones Negative Negative Urine Blood Negative Negative /uL Urine Nitrite Negative Negative Urine Bilirubin Negative Negative Urine Urobilinogen Normal Negative mg/dL Urine Leukocyte Esterase Negative Negative /uL Urine RBC <1 0 - 4 /hpf Urine Microscopic WBC 4 0-5 /HPF Urine Squamous Epithelial Cells Few <5 /hpf Urine Bacteria Few H None Seen /hpf Urine Hyaline Casts Few 0 - 2 /lpf Urine Mucus Moderate None Seen Urine Glucose Trace Normal mg/dL Assessment/Plan Assessment/Plan Assessment Hypertensive urgency Migraine Plan Admit the patient to [facility] to the hospitalist As needed antihypertensives Resume home medications Echocardiogram pending Continue treatment per orders. Plan discussed with: Patient My Orders Orders - [facility]OS[facility] AGACNP Procedure Category Date Status Time Hydralazine Injection PHA 10/18/24 In Process (Apresoline Inject 19:15 Metoprolol Xl PHA 10/19/24 In Process Succinate (Toprol Xl) 10:00 Losartan Tablet PHA 10/19/24 In Process (Cozaar Tablet) 10:00 Basic Metabolic Panel LAB 10/19/24 Verified 04:00 Admit ADMIT 10/18/24 Transmitted 19:06 Temazepam (Restoril) PHA 10/18/24 In Process 19:15 Ondansetron Hcl PHA 10/18/24 In Process (Zofran) 19:15 Cardiac DIET 10/19/24 Transmitted Diet-2gna,Lofat,Lochol Breakfast Echo 2d Mode Cardiac US 10/18/24 Logged DOP 19:06 Condition: Stable RASHEED 10/18/24 In Process 19:06 Acetaminophen Tablet PHA 10/18/24 In Process (Tylenol Tablet) 19:15 Bedrest With Bathroom RASHEED 10/18/24 In Process Privileg 19:06 Date of Service: Oct 18, 2024 Billing Provider: HAL ALEJANDRO Common Visit Codes: [id number] INP/OBS CARE (HIGH) [facility] Oct 18, 2024 20:18
[2024-10-18] MEDS ORDERED: SUMAtriptan SUCCINATE 25 MG TAB PO PRN (20:30)
[2024-10-18] MEDS: SUMAtriptan SUCCINATE 25 MG TAB PO PRN (20:34)
[2024-10-18] MEDS: hydrALAZINE HCL 20 MG/ML VL IV PRN (20:35)
[2024-10-18 20:56] LABS: Triglycerides 103 mg/dL (< 150)
[2024-10-18 20:58] LABS: Cholesterol 155 mg/dL (< 200); HDL Cholesterol 48 mg/dL (40-59)
[2024-10-18 20:59] LABS: LDL Cholesterol 103 mg/dL (< 100)
[2024-10-19] VITALS (11 sets, daily range): BP systolic 134–166; BP diastolic 70–112; PULSE 74–111; RESP 7–20; TEMP 97.6–98.7; O2SAT 97–99
[2024-10-19] MEDS: HYDROcodone-ACET 5/325MG TAB PO PRN (00:48)
[2024-10-19 07:36] LABS: Calcium 9.4 mg/dL (8.7-10.4); Potassium 3.9 mmol/L (3.5-5.1); Sodium 140 mmol/L (136-145)
[2024-10-19 07:37] LABS: Anion Gap 11 (5-15); Carbon Dioxide 21 mmol/L (20-31)
[2024-10-19 07:42] LABS: BUN/Creatinine Ratio 12.9 (10.0-20.0); Blood Urea Nitrogen 11 mg/dL (9-23); Glucose 106 mg/dL (74-106)
[2024-10-19 07:48] LABS: Chloride 108 mmol/L (98-107)
[2024-10-19] MEDS: ONDANSETRON HCL 4 MG/2 ML VIAL IV PRN (08:44)
[2024-10-19] MEDS: LOSARTAN POTASSIUM 50 MG TAB PO SCH (09:43)
[2024-10-19] MEDS: METOPROLOL SUCCINATE XL 50 MG TAB PO SCH (09:43)
[2024-10-19] MEDS: MORPHINE SULFATE INJ 2 MG/ml SYRG IV PRN (13:04)
--- NOTE | 2024-10-19 18:20 | DVHPN2 ---
Subjective having migraine pains Changes from previous H/P or p: No Changes Objective Vitals Vital Signs Date Time Temp Pulse Resp B/P (MAP) Pulse Ox O2 Delivery O2 Flow Rate FiO2 10/19/24 16:52 82 18 134/76 10/19/24 16:36 98.2 98 98.2 10/19/24 05:21 Room Air* 0 21 General Appearance: Alert, Oriented X3 HEENT: Atraumatic Lungs: Clear to auscultation Cardiovascular: Regular rate, Normal S1, Normal S2 Abdomen: Normal bowel sounds Medications Current Medications Medications Dose Ordered Sig/Rosanna Route Start Time Stop Time Status Last Admin Dose Admin Hydralazine HCl 10 mg Q6HP PRN IV 10/18/24 19:15 10/19/24 12:02 10 MG Metoprolol Succinate 50 mg DAILY PO 10/19/24 10:00 10/19/24 09:43 50 MG Losartan Potassium 50 mg DAILY PO 10/19/24 10:00 10/19/24 09:43 50 MG Temazepam 15 mg QHSP PRN PO 10/18/24 19:15 Ondansetron HCl 4 mg Q4HP PRN IV 10/18/24 19:15 10/19/24 12:54 4 MG Acetaminophen 650 mg Q6HP PRN PO 10/18/24 19:15 10/18/24 19:34 650 MG Sumatriptan Succinate 25 mg Q2HP PRN PO 10/18/24 20:30 10/19/24 08:41 25 MG Acetaminophen/ Hydrocodone Bitart 1 tab Q6HPRN PRN PO 10/18/24 20:30 10/19/24 12:03 1 TAB Amoxicillin/ Clavulanate Potassium 875 mg Q12HR PO 10/19/24 22:00 Morphine Sulfate 1 mg Q2HP PRN IV 10/19/24 12:15 10/19/24 13:04 1 MG Laboratory Results Laboratory Tests 10/18/24 11:18 10/19/24 06:28 Chemistry Test 10/19/24 06:28 Calcium Level 9.4 mg/dL (8.7-10.4) Urinalysis Test 10/18/24 11:11 Urine Color Yellow (Yellow) Urine Clarity Clear (Clear) Urine pH 6.0 (5.0-9.0) Urine Specific [place] 1.019 (1.001-1.035) Urine Protein 1+ (Negative) H Urine Ketones Negative (Negative) Urine Blood Negative /uL (Negative) Urine Nitrite Negative (Negative) Urine Bilirubin Negative (Negative) Urine Urobilinogen Normal mg/dL (Negative) Urine Leukocyte Esterase Negative /uL (Negative) Urine RBC <1 /hpf (0 - 4) Urine Microscopic WBC 4 /HPF (0-5) Urine Squamous Epithelial Cells Few /hpf (<5) Urine Bacteria Few /hpf (None Seen) H Urine Hyaline Casts Few /lpf (0 - 2) Urine Mucus Moderate (None Seen) Urine Glucose Trace mg/dL (Normal) Assessment/Plan Assessment/Plan Hypertensive urgency better but probable worse with pain, continue home meds, pain control Migraine restart home meds Plan discussed with: Patient My Orders Orders - BIPIN GOMEZ MD Procedure Category Date Status Time Amoxicillin/Clavulanate PHA 10/19/24 In Process Tablet (Augmenti 22:00 Morphine Sulfate PHA 10/19/24 In Process Injection 12:15 Date of Service: Oct 19, 2024 Billing Provider: BIPIN GOMEZ MD Common Visit Codes: [id number] INP/OBS CARE(HIGH) BIPIN GOMEZ MD Oct 19, 2024 18:20
[2024-10-19] MEDS: AMOXICILLIN/CLAVUL 875 MG TAB PO SCH (21:15)
[2024-10-20] VITALS (8 sets, daily range): BP systolic 123–168; BP diastolic 74–103; PULSE 71–96; RESP 17–18; TEMP 98.1–99.1; O2SAT 96–97
--- NOTE | 2024-10-20 12:07 | DVHSR ---
APPROVED REPORT EXAM: Two-dimensional and M-mode echocardiogram with Doppler and color Doppler. Blood Pressure: 166/106 mmHg INDICATION Hypertensive urgency RISK FACTORS Obesity: Height: 5'6", Weight: 210 DIMENSIONS LVDd3.8 (3.8-5.7cm)LA (2D)3.1 (1.9-4.0cm)Aortic Root3.5 (2.0-3.7cm) LVDs2.7 (2.5-4.0cm)LA (MM) (1.9-4.0cm)Aortic Cusp Exc2.0 (1.5-2.0cm) EF (%) 55.0 (55-70%)Rt. Atrium3.4 (1.9-4.0cm)Asc. Aorta cm IVSd1.2 (0.7-1.1cm)RV (D) (1.8-2.4cm) PWd1.3 (0.7-1.1cm) Mitral Valve MitralMitral Stenosis E wave0.89m/sMV Mean GR.mmHg A wave1.19m/sMV Peak GR.mmHg E/A ratio0.72D MVAcm2 DECEL [id number] 1/2 [place] Aortic Valve Aortic ValveAortic Stenosis V10.97m/[place] Mean GR.4mmHg V21.45m/[place] Peak GR.8mmHg LVOT Diameter2.0 (1.8-2.4cm)Doppler AVA2.10cm2 Other Information Technically limited study due to body habitus. Conclusion Sinus rhythm. Concentric LVH. Aortic root enlargement. Valves are normal. EF of 60% with normal RV function. Dopplers unremarkable. No pericardial effusion masses or vegetations.
[2024-10-20] MEDS ORDERED: SUMAtriptan SUCCINATE 6 MG/0.5 ML VL SC PRN (14:00)
--- NOTE | 2024-10-20 16:03 | ECG ---
[facility] Test Date: 2024-10-20 Test Time: 15:52:35 Pat Name: LUCHO HAMILTON Department: Respiratoy Room: [address] [place] [address] 4 Gender: F Darkroom Technician: VIKTORIA : 1980 Requested By: BIPIN GOMEZ Order Number: [id number] Reading MD: Kavon Fisher Measurements Intervals [place] Rate: 69 P: 31 CA: 183 QRS: 51 QRSD: 91 T: 21 QT: 399 QTc: 428 Interpretive Statements Sinus rhythm Consider anterior infarct Baseline wander in lead(s) I,II,aVR Electronically Signed On 10-22-2024 13:37:54 PST by Kavon Fisher Please click the below link to view image of tracing.
--- NOTE | 2024-10-20 16:14 | DVHPN2 ---
Subjective continues to have severe migraine pains. Hypertensive Changes from previous H/P or p: No Changes Objective Vitals Vital Signs Date Time Temp Pulse Resp B/P (MAP) Pulse Ox O2 Delivery O2 Flow Rate FiO2 10/20/24 15:38 71 18 160/108 10/20/24 12:47 98.1 96 98.1 10/20/24 08:00 Room Air* 0 21 Intake/Output Intake and Output 10/20/24 07:00 Intake Total 500 ml Balance 500 ml Intake Oral 500 ml # Voids 6 General Appearance: Alert, Oriented X3 HEENT: Atraumatic Lungs: Clear to auscultation Cardiovascular: Regular rate, Normal S1, Normal S2 Abdomen: Normal bowel sounds Medications Current Medications Medications Dose Ordered Sig/Rosanna Route Start Time Stop Time Status Last Admin Dose Admin Hydralazine HCl 10 mg Q6HP PRN IV 10/18/24 19:15 10/20/24 11:43 10 MG Metoprolol Succinate 50 mg DAILY PO 10/19/24 10:00 10/20/24 10:45 50 MG Losartan Potassium 50 mg DAILY PO 10/19/24 10:00 10/20/24 10:45 50 MG Temazepam 15 mg QHSP PRN PO 10/18/24 19:15 Ondansetron HCl 4 mg Q4HP PRN IV 10/18/24 19:15 10/20/24 08:33 4 MG Acetaminophen 650 mg Q6HP PRN PO 10/18/24 19:15 10/18/24 19:34 650 MG Acetaminophen/ Hydrocodone Bitart 1 tab Q6HPRN PRN PO 10/18/24 20:30 10/19/24 12:03 1 TAB Amoxicillin/ Clavulanate Potassium 875 mg Q12HR PO 10/19/24 22:00 10/20/24 10:44 875 MG Morphine Sulfate 1 mg Q2HP PRN IV 10/19/24 12:15 10/20/24 15:38 1 MG Sumatriptan Succinate 6 mg PRN PRN SC 10/20/24 14:00 UNV Ketorolac Tromethamine 30 mg Q6HPRN PRN IV 10/20/24 14:00 10/25/24 13:59 UNV Laboratory Results Laboratory Tests 10/18/24 11:18 10/19/24 06:28 Urinalysis Test 10/18/24 11:11 Urine Color Yellow (Yellow) Urine Clarity Clear (Clear) Urine pH 6.0 (5.0-9.0) Urine Specific [place] 1.019 (1.001-1.035) Urine Protein 1+ (Negative) H Urine Ketones Negative (Negative) Urine Blood Negative /uL (Negative) Urine Nitrite Negative (Negative) Urine Bilirubin Negative (Negative) Urine Urobilinogen Normal mg/dL (Negative) Urine Leukocyte Esterase Negative /uL (Negative) Urine RBC <1 /hpf (0 - 4) Urine Microscopic WBC 4 /HPF (0-5) Urine Squamous Epithelial Cells Few /hpf (<5) Urine Bacteria Few /hpf (None Seen) H Urine Hyaline Casts Few /lpf (0 - 2) Urine Mucus Moderate (None Seen) Urine Glucose Trace mg/dL (Normal) Assessment/Plan Assessment/Plan #Hypertensive urgency better but probable worse with pain, continue home meds, pain control Remains hypertensive 190/100 today probable pain driven #Migraine Added IV toradol and IV sumatriptan today due to severe headaches and nausea Plan discussed with: Patient My Orders Orders - BIPIN GOMEZ MD Procedure Category Date Status Time Sumatriptan Inj PHA 10/20/24 Logged (Imitrex Inj) 14:00 Ketorolac Injection PHA 10/20/24 Logged (Toradol Injection) 14:00 Troponin-I Hs LAB 10/20/24 Logged 16:05 * Cardiology Consult CONS 10/20/24 Transmitted 16:05 Date of Service: Oct 20, 2024 Billing Provider: BIPIN GOMEZ MD Common Visit Codes: [id number] INP/OBS CARE(HIGH) BIPIN GOMEZ MD Oct 20, 2024 16:14
[2024-10-20] MEDS: KETOROLAC TROMETH 30 MG/ML 1ML VIAL IV PRN (16:46)
[2024-10-20] MEDS: CHLORTHALIDONE 25 MG TAB PO ONE (18:01)
--- NOTE | 2024-10-20 18:29 | DVHINCON2 ---
Date Seen: Oct 20, 2024 Referring Physician MD Davie Reason for Consultation Chest pain History of Present Illness This is a 44-year-old female who presented to the emergency room with a chief complaint of generalized weakness x2 days. The patient complains of generalized weakness associated with a headache, nausea, and vomiting. Upon arrival to the emergency room she was found with a blood pressure of 203/134 mmHg. At that time she underwent a 12 lead electrocardiogram revealing a normal sinus rhythm. States she is compliant with her losartan therapy at home. During admission the patient developed chest pain prompting cardiology evaluation. She underwent a subsequent 12 lead electrocardiogram revealing a normal sinus rhythm without evidence of ST segment changes. Serial troponin levels are negative. Significant medical history includes hypertension, migraine headaches, and obesity. Past Medical History Past medical history reviewed. No other significant than mentioned above. Past Surgical History Breast implants Family History: Hypertension G8 MOTHER G8 FATHER Family History Family history reviewed. Denies for CV disease. Social History Denies the use of illicit drugs, alcohol, or tobacco use. Allergies: Coded Allergies: NO KNOWN ALLERGIES (Unverified , 01/09/21) Home Meds Active Scripts Ibuprofen Micronized (MOTRIN TABLET) 600 Mg Tb, 600 MG PO TID PRN for 7 Days, #21 TAB *Black box warning-NSAIDS can increase risk of [place] & hypertension, GI irritation, ulceration, bleed, perferation. Do not use post cardiac surgery. Use short duration/lowest effective dose. Prov:DRU MAKI MD 04/30/22 Nitrofurantoin Monohydrate Mac (Macrobid) 100 Mg Cap, 100 MG PO BID for 7 Days, #21 CAP Prov:DRU MAKI MD 04/30/22 Metoprolol Succinate (Toprol Xl) 25 Mg Tab, 1 TAB PO DAILY, #30 TAB 0 Refills Prov:JOSE STEVENS MD 11/28/21 Rimegepant Sulfate (Nurtec) 75 Mg Tab, 75 MG PO PRN, #3 TAB 0 Refills 75 mg PO x 1 as needed for prophylaxis migraine headache (two days prior menstrual period) Prov:JOSE STEVENS MD 11/28/21 Losartan Potassium (Losartan Potassium) 50 Mg Tab, 1 TAB PO DAILY, #30 TAB 0 Refills Prov:JOSE STEVENS MD 11/28/21 Reported Medications Sumatriptan Succinate (Sumatriptan Succinate) 50 Mg Tab, 50 MG PO DAILYP PRN for FOR HEADACHE, MG 11/28/21 Losartan Potassium (Losartan Potassium) 25 Mg Tab, PO DAILY for 30 Days, MG 11/28/21 Current Medications Current Medications Medications (Trade) Dose Ordered Sig/Rosanna Route PRN Reason Start Time Stop Time Status Last Admin Amoxicillin/ Clavulanate Potassium (Augmentin Tablet) 875 mg Q12HR PO 10/19/24 22:00 10/20/24 10:44 Sumatriptan Succinate (Imitrex Inj) 6 mg PRN PRN SC FOR HEADACHE 10/20/24 14:00 Ketorolac Tromethamine (Toradol Injection) 30 mg Q6HPRN PRN IV SEVERE PAIN (7-10 PAIN SCALE) 10/20/24 14:00 10/25/24 13:59 10/20/24 16:46 Losartan Potassium (Cozaar Tablet) 100 mg DAILY PO 10/21/24 10:00 Chlorthalidone (Chlorthalidone) 25 mg DAILY@BREAKFAST PO 10/21/24 08:00 Review of Systems Constitutional: Generalized weakness Ears, Nose, & Throat: No symptom reported Eyes: No symptom reported Neurological: PIÑA Pulmonary/Respiratory: No symptom reported Cardiovascular: Chest pain Gastrointestinal: N/V Genitourinary: No symptom reported Musculoskeletal: No symptom reported Skin: No symptom reported Psychiatric: No symptom reported Endocrine: No symptom reported Hemotologic/Lymphatic: No symptom reported Vital Signs Vital Signs Date Time Temp Pulse Resp B/P (MAP) Pulse Ox O2 Delivery O2 Flow Rate FiO2 10/20/24 17:00 98.8 75 18 146/97 (113) 97 98.8 10/20/24 08:00 Room Air* 0 21 Physical Exam General Appearance: Cooperative. Well developed. Obese. In no acute distress Head Exam: Normal inspection Neck Exam: Normal inspection. Non-tender. Normal alignment Pulmonary/Respiratory: Chest non-tender. Clear bilateral breath sounds Cardiovascular/Chest: Regular rate and rhythm. S1, S2. NSR. No murmurs. No J VD. Peripheral Pulses: 2+ Radial (R). 2+ Radial (L). 2+ Pedal (R). 2+ Pedal (L) Abdominal Exam: Normal bowel sounds. Soft. Nontender. No hepatospenomegaly. No masses Ankle Exam: Negative ankle edema Lower extremities: Negative lower extremity edema Neuro/Mental Status: A&O x4. Coherent Thoughts/Psych: Normal thought pattern. Appropriate mood and affect. Good judgement and insight Appearance: In no acute distress Skin Exam: Normal inspection. Normal color. Warm. Dry Labs/Diagnostic Data Labs Test 10/20/24 16:19 10/19/24 06:28 10/18/24 12:13 10/18/24 11:18 Range/Units Troponin I High Sensitivity 3 L </=34 ng/L Sodium Level 140 136-145 mmol/L Potassium Level 3.9 3.5-5.1 mmol/L Chloride Level 108 H 98-107 mmol/L Carbon Dioxide Level 21 20-31 mmol/L Anion Gap 11 5-15 Blood Urea Nitrogen 11 9-23 mg/dL Creatinine 0.85 0.550-1.02 mg/dL Glomerular Filtration Rate Calc 88 >90 mL/min BUN/Creatinine Ratio 12.9 10.0-20.0 Serum Glucose 106 74-106 mg/dL Calcium Level 9.4 8.7-10.4 mg/dL Triglycerides Level 103 < 150 mg/dL Cholesterol Level 155 < 200 mg/dL LDL Cholesterol 103 H < 100 mg/dL HDL Cholesterol 48 40-59 mg/dL Thyroid Stimulating Hormone (TSH) 1.00 0.55-4.78 uIU/mL White Blood Count 7.8 4.4-10.8 10^3/uL Red Blood Count 6.41 H 4.0-5.20 10^6/uL Hemoglobin 13.4 12.2-16.2 g/dL Hematocrit 43.7 36.0-46.0 % Mean Corpuscular Volume 68.2 L 80.0-100.0 fL Mean Corpuscular Hemoglobin 20.9 L 28.0-32.0 pg Mean Corpuscular Hemoglobin Concent 30.7 L 32.0-36.0 g/dL Red Cell Distribution Width 19.1 H 11.8-14.3 % Platelet Count 292 140-450 10^3/uL Mean Platelet Volume 8.9 6.9-10.8 fL Neutrophils (%) (Auto) 59.6 37.0-80.0 % Lymphocytes (%) (Auto) 26.7 10.0-50.0 % Monocytes (%) (Auto) 5.2 0.0-12.0 % Eosinophils (%) (Auto) 7.5 H 0.0-7.0 % Basophils (%) (Auto) 1.0 0.0-2.0 % Neutrophils # (Auto) 4.6 1.6-8.6 10 ^3/uL Lymphocytes # (Auto) 2.1 0.4-5.4 10 ^3/uL Monocytes # (Auto) 0.4 0-1.3 10 ^3/uL Eosinophils # (Auto) 0.6 0-0.8 10 ^3/uL Basophils # (Auto) 0.1 0-0.2 10 ^3/uL Nucleated Red Blood Cells 0.0 % Total Bilirubin 0.4 0.2-1.0 mg/dL Aspartate Amino Transferase (AST) < 8 L 13-40 U/L Alanine Aminotransferase (ALT) 18 7-40 U/L Alkaline Phosphatase 91 46-116 U/L Total Protein 7.1 5.7-8.2 g/dL Albumin 4.8 3.2-4.8 g/dL Test 10/18/24 11:11 Range/Units Urine Color Yellow Yellow Urine Clarity Clear Clear Urine pH 6.0 5.0-9.0 Urine Specific [place] 1.019 1.001-1.035 Urine Protein 1+ H Negative Urine Ketones Negative Negative Urine Blood Negative Negative /uL Urine Nitrite Negative Negative Urine Bilirubin Negative Negative Urine Urobilinogen Normal Negative mg/dL Urine Leukocyte Esterase Negative Negative /uL Urine RBC <1 0 - 4 /hpf Urine Microscopic WBC 4 0-5 /HPF Urine Squamous Epithelial Cells Few <5 /hpf Urine Bacteria Few H None Seen /hpf Urine Hyaline Casts Few 0 - 2 /lpf Urine Mucus Moderate None Seen Urine Glucose Trace Normal mg/dL Assessment Chest pain in the setting of hypertensive urgency Borderline dyslipidemia Migraine headaches Obesity Plan/Recommendation (Dr. Fisher) The patient complains of chest pain in the setting of hypertensive urgency. It is imperative to continue aggressive blood pressure control for which the patient has been uptitrated on losartan therapy and added chlorthalidone therapy for a target SBP <140 mmHg. Continue hydralazine p.r.n. Consider Coreg if unable to control BPs with aforementioned medications. A transthoracic echocardiogram revealed an EF of 60% with normal RV function. Twelve lead electrocardiogram were unremarkable. Serial troponin levels are negative. There is no further cardiac workup indicated at this time. Kindly call if in need to re-consult. Thank you for allowing us to participate in this patient's care. This medical document was created using an electronic medical record system with voice recognition software and computerized dictation system. Although this document has been carefully reviewed, there might still be some phonetic and typographical errors. Occasional wrong-word or ``sound-alike substitutions may have occurred due to the inherent limitations of voice recognition software. These areas are purely typographical due to imperfections of the software programs and do not reflect any compromise in the patient's medical care. Please read the chart carefully and recognize, using context, where these substitutions have occurred. Plan discussed with: Patient, Other [place]HA Physical activity limitations: NA Date of Service: Oct 20, 2024 Billing Provider: JAZMIN BILLY Cardiology Common Codes: [id number] INP/OBS CARE (High) JAZMIN BILLY Oct 20, 2024 18:29
[2024-10-21 00:51] VITALS: BP 122/81; PULSE 71; RESP 18; TEMP 98.3; O2SAT 97
[2024-10-21 05:00] VITALS: BP 128/81; PULSE 78; RESP 18; TEMP 98.3; O2SAT 98
[2024-10-21] MEDS: CHLORTHALIDONE 25 MG TAB PO SCH (07:53)
[2024-10-21 08:00] VITALS: PULSE 67; RESP 18; O2SAT 95
[2024-10-21 09:00] VITALS: BP 137/92; PULSE 67; RESP 18; TEMP 98; O2SAT 95
[2024-10-21] MEDS: LOSARTAN POTASSIUM 50 MG TAB PO SCH (09:43)
[2024-10-21 12:44] VITALS: BP 152/100; PULSE 77
[2024-10-21] MEDS ORDERED: AUG875T PO (12:46)
[2024-10-21 13:00] VITALS: BP 142/90; PULSE 71; RESP 18; TEMP 97.9; O2SAT 98
[2024-10-21] MEDS ORDERED: HYDR-4902 PO ×2 (13:11→13:21)
== END 2024-10-21 15:35 | disposition home or self-care (01) | DRG 103 ==
LOC: ER 10:46 → OVERFLOW 19:06 → EAST 10-19 22:00
PROVIDERS: ADMIT Hospitalist; ATTEND Hospitalist
DX: G43.909 Migraine, unspecified, not intractable, without status migrainosus (principal); I16.0 Hypertensive urgency; E78.5 Hyperlipidemia, unspecified; I10 Essential (primary) hypertension; E66.9 Obesity, unspecified; Z98.891 History of uterine scar from previous surgery; Z98.82 Breast implant status; Z79.1 Long term (current) use of non-steroidal anti-inflammatories (NSAID); Z79.899 Other long term (current) drug therapy; Z82.49 Family history of ischemic heart disease and other diseases of the circulatory system; Z68.34 Body mass index [BMI] 34.0-34.9, adult
CPT/HCPCS: 36415; 70450; 71045; 80048; 80053; 80061; 81001; 84443; 84484; 85025; 93005; 93306; 96374; 96375; 99291; G0378; J1885; J2405